=== PATIENT | male | born 1990 | race Caucasian/White ===

== ENCOUNTER 2024-10-24 17:50 | Emergency (ER) | payer OTHER, SELFPAY ==
--- NOTE | ~2024-10-24 | XR_ITS ---
EXAMINATION: XR chest 2V Exam Date/Time: 10/24/2024 18:19 EDUCATIONAL ASSISTANT HISTORY: sob Comparison: None. RESULT: Lines, tubes, and devices: None. Lungs and pleura: Mild reticulonodular opacities in the bilateral lower lungs. Mild cuffing. Cardiomediastinal silhouette: Stable. Other: No acute osseous or upper abdominal finding. IMPRESSION: Pulmonary opacities may represent mild respiratory bronchiolitis in the appropriate clinical context. Reviewed, dictated and finalized at location [facility]. ATIONAL ASSISTANT IMPRESSION: Pulmonary opacities may represent mild respiratory bronchiolitis in the appropr iate clinical context.
--- NOTE | 2024-10-24 18:08 | ED.GENADULT ---
HPI - General Adult General Chief complaint: Unspecified <Sandra Jones PA-C - Last Filed: 10/25/24 10:45> Stated complaint: arms and legs numb, sob - recently had flu a <Sandra Jones PA-C - Last Filed: 10/25/24 10:45> Time Seen by Provider: 10/24/24 18:09 <Sandra Jones PA-C - Last Filed: 10/25/24 10:45> Focused HPI: This is a 25 year old male that presents to the ER for shortness of breath. Reports he was driving home from work. He started to feel lightheaded, short of breath, tingling in his arms and legs. Reports recently recovering from influenza. Denies chest pain. GENERAL: Well-appearing, well-nourished, and in no acute distress. HEAD: Normocephalic, atraumatic. CHEST: Clear to auscultation. ?No respiratory distress. HEART: Regular rate and rhythm.? NEURO: ?Alert and oriented x3. Patient screened in triage and initial orders placed.? ?Additional care and disposition to be based upon?diagnostic testing and treatment. <Sandra Jones PA-C - Last Filed: 10/25/24 10:45> Focused HPI: This is a 35 year old male that presents to the ER for shortness of breath. Reports he was driving home from work. He started to feel lightheaded, short of breath, tingling in his arms and legs. Reports recently recovering from influenza. Denies chest pain. GENERAL: Well-appearing, well-nourished, and in no acute distress. HEAD: Normocephalic, atraumatic. CHEST: Clear to auscultation. ?No respiratory distress. HEART: Regular rate and rhythm.? NEURO: ?Alert and oriented x3. Patient screened in triage and initial orders placed.? ?Additional care and disposition to be based upon?diagnostic testing and treatment. <Liborio Fuller MD - Last Filed: 10/24/24 23:38> History of Present Illness HPI narrative: 33-year-old male, agree with the HPI above, patient has had on and off shortness of breath for years without any clear explanations, negative pulmonary function test at outside hospital/PCPs office. Presently asymptomatic during my initial evaluation, denies any neuropathy, tingling, shortness of breath. <Liborio Fuller MD - Last Filed: 10/24/24 23:38> Related Data Allergies/adverse reactions: Allergies Allergy/AdvReac Type Severity Reaction Status Date / Time No Known Allergies Allergy Verified 10/25/24 00:31 <Sandra Jones PA-C - Last Filed: 10/25/24 10:45> Review of Systems Review of Systems: As reviewed above in HPI <Liborio Fuller MD - Last Filed: 10/24/24 23:38> Exam Narrative: GENERAL: [Well-appearing, well-nourished, and in no acute distress.] HEAD: [Normocephalic, atraumatic.] EYES: [PERRLA and EOMI.] ENT: Nares clear, no rhinorrhea or epistaxis. Mucous membranes moist. NECK: Supple. CHEST: [Clear to auscultation. No respiratory distress.] HEART: [Regular rate and rhythm]. No murmur heard. [Normal peripheral pulses.] ABDOMEN: [Soft, nondistended], [nontender], [No rigidity or guarding] EXTREMITIES: Normal range of motion. [No edema.] SKIN: Warm, dry, no rash. NEURO: [No focal deficits]. Alert and oriented [x3.] PSYCH: [Normal mood and affect.] <Liborio Fuller MD - Last Filed: 10/24/24 23:38> Course Vital Signs Vital signs: Vital Signs Temperature 98.0 F 10/24/24 18:22 Pulse Rate 79 10/24/24 18:22 Respiratory Rate 18 10/24/24 18:22 Blood Pressure 112/65 10/24/24 18:22 Pulse Oximetry 100 10/24/24 18:22 Oxygen Delivery Room Air 10/24/24 18:22 Temperature 98.0 F 10/24/24 18:22 Pulse Rate 74 10/25/24 01:18 Respiratory Rate 17 10/25/24 01:18 Blood Pressure 108/76 10/25/24 01:18 Pulse Oximetry 100 10/25/24 01:18 Oxygen Delivery Room Air 10/24/24 18:22 <Sandra Jones PA-C - Last Filed: 10/25/24 10:45> Vital Signs Temperature 98.0 F 10/24/24 18:22 Pulse Rate 79 10/24/24 18:22 Respiratory Rate 18 10/24/24 18:22 Blood Pressure 112/65 10/24/24 18:22 Pulse Oximetry 100 10/24/24 18:22 Oxygen Delivery Room Air 10/24/24 18:22 Temperature 98.0 F 10/24/24 18:22 Pulse Rate 74 10/25/24 01:18 Respiratory Rate 17 10/25/24 01:18 Blood Pressure 108/76 10/25/24 01:18 Pulse Oximetry 100 10/25/24 01:18 Oxygen Delivery Room Air 10/24/24 18:22 <Liborio Fuller MD - Last Filed: 10/24/24 23:38> Medical Decision Making MDM Narrative Medical decision making narrative: 33-year-old otherwise healthy appearing male presenting to the emergency department for evaluation of shortness of breath and bilateral arm and leg paresthesias that were short-lived and self-resolved. Symptoms occurred while he was driving the company car on his way to work. [place] tingling in his fingers and toes which also happened during his recent diagnosis of influenza. He just got over acute viral syndrome and was feeling better from this but still having residual cough and some shortness of breath. Denies any symptoms during my initial assessment, no paresthesias, tingling in the arms, legs, face. No asymmetric weakness. No facial asymmetry. No headache or vision changes. He has clear breath sounds throughout. 2+ symmetric radial pulses. Normal extremities exam. Normal vital signs with any tachycardia, fever or hypoxia. Lab work was obtained including CBC, CMP, troponin, PT, PTT, EKG and chest x-ray and he was given fluid bolus. Suspicion presently for potential post viral syndrome, bronchitis, pneumonia, panic attack, anxiety, less likely central pathology given his resolution of symptoms and lack of clinical findings during this assessment. Workup reveals no leukocytosis or significant anemia. Normal platelet count. Coagulation panel without significant findings. Minor hypokalemia 3.2 which could be secondary for some tachypnea. Normal electrolytes otherwise. Normal renal function, normal glucose and hepatic function panel. Negative troponin. Negative lipase. His chest x-ray shows some respiratory bronchiolitis in the lower airways consistent with his clinical history. EKG shows sinus rhythm, no signs of acute ischemic event, infrequent PVCs noted. Patient was provided prednisone for his bronchiolitis, has tried albuterol inhaler home without any relief. Not any respiratory distress with normal vital signs. He was given some potassium replenishment as well as a fluid bolus and safe for discharge home at this time. Patient's questions were answered he will contact his PCP for close follow-up and return with any new or worsening concerns. <Liborio Fuller MD - Last Filed: 10/24/24 23:38> Medical Records Medical records reviewed: Yes I reviewed the external patient's medical records. <Liborio Fuller MD - Last Filed: 10/24/24 23:38> Vital Signs Vital Signs: Vital Signs Temperature 98.0 F 10/24/24 18:22 Pulse Rate 79 10/24/24 18:22 Respiratory Rate 18 10/24/24 18:22 Blood Pressure 112/65 10/24/24 18:22 Pulse Oximetry 100 10/24/24 18:22 Oxygen Delivery Room Air 10/24/24 18:22 Temperature 98.0 F 10/24/24 18:22 Pulse Rate 74 10/25/24 01:18 Respiratory Rate 17 10/25/24 01:18 Blood Pressure 108/76 10/25/24 01:18 Pulse Oximetry 100 10/25/24 01:18 Oxygen Delivery Room Air 10/24/24 18:22 <Sandra Jones PA-C - Last Filed: 10/25/24 10:45> Vital Signs Temperature 98.0 F 10/24/24 18:22 Pulse Rate 79 10/24/24 18:22 Respiratory Rate 18 10/24/24 18:22 Blood Pressure 112/65 10/24/24 18:22 Pulse Oximetry 100 10/24/24 18:22 Oxygen Delivery Room Air 10/24/24 18:22 Temperature 98.0 F 10/24/24 18:22 Pulse Rate 74 10/25/24 01:18 Respiratory Rate 17 10/25/24 01:18 Blood Pressure 108/76 10/25/24 01:18 Pulse Oximetry 100 10/25/24 01:18 Oxygen Delivery Room Air 10/24/24 18:22 <Liborio Fuller MD - Last Filed: 10/24/24 23:38> Lab Data Lab results reviewed: Yes I reviewed the patient's lab results. <Liborio Fuller MD - Last Filed: 10/24/24 23:38> Result diagrams: 10/24/24 18:53 10/24/24 18:53 <Sandra Jones PA-C - Last Filed: 10/25/24 10:45> Labs: Lab Results 10/24/24 Range/Units 18:53 WBC 9.5 (4.5-10.0) K/mm3 RBC 4.44 L (4.6-6.20) M/mm3 Hgb 12.6 L (14.0-18.0) g/dL Hct 38.1 L (42.0-52.0) % MCV 85.8 (80-100) fl MCH 28.4 (26-34) pg MCHC 33.1 (32-36) g/dl RDW 12.7 (11.5-14.5) % Plt Count 385 H (150-375) k/mm3 MPV 10.5 H (7.4-10.4) fl Immature Gran % (Auto) 0.4 (0-0.5) % Neut % (Auto) 55.6 (45.5-73.1) % Lymph % (Auto) 33.4 (18.3-44.2) % [place] % (Auto) 8.7 H (2.6-8.5) % Eos % (Auto) 1.5 (0-4.4) % Baso % (Auto) 0.4 (0.2-1.2) % Lymph # (Auto) 3.17 (0.9-3.2) K/mm3 [place] # (Auto) 0.8 H (0.1-0.6) K/mm3 Eos # (Auto) 0.1 (0-0.3) K/mm3 Baso # (Auto) 0.0 (0.0-0.1) K/mm3 Abs Immat Gran (auto) 0.04 H (0.00-0.031) K/mm3 Absolute Neuts (auto) 5.3 (1.3-6.7) K/mm3 Absolute Nucleated RBC 0.000 (0.0-0.012) K/mm3 Nucleated RBC % 0.0 (0.0-0.2) % PT 14.4 (11.1-14.7) Seconds INR 1.1 APTT 38.2 H (22.3-36.8) Seconds Sodium 138 (137-145) mmol/L Potassium 3.2 L (3.4-5.0) mmol/L Chloride 101 (98-107) mmol/L Carbon Dioxide 25 (22-30) mmol/L Anion Gap 12 (4-12) mmol/L BUN 11 (9-20) mg/dL Creatinine 0.78 (0.7-1.3) mg/dL Estim Creat Clear Calc 131 ml/min Estimated GFR > 60 (59 - ) Glucose 100 (65-110) mg/dL Calcium 9.3 (8.4-10.2) mg/dL Total Bilirubin 0.7 (0.2-1.3) mg/dL AST 36 (17-59) U/L ALT 32 (6-50) U/L Alkaline Phosphatase 65 (38-126) U/L Troponin I < 0.012 (0.000-0.034) ng/mL Total Protein 9.0 H (6.3-8.2) g/dL Albumin 4.2 (3.5-5.1) g/dL Lipase 114 (23-300) U/L <Sandra Jones PA-C - Last Filed: 10/25/24 10:45> Lab Results 10/24/24 Range/Units 18:53 WBC 9.5 (4.5-10.0) K/mm3 RBC 4.44 L (4.6-6.20) M/mm3 Hgb 12.6 L (14.0-18.0) g/dL Hct 38.1 L (42.0-52.0) % MCV 85.8 (80-100) fl MCH 28.4 (26-34) pg MCHC 33.1 (32-36) g/dl RDW 12.7 (11.5-14.5) % Plt Count 385 H (150-375) k/mm3 MPV 10.5 H (7.4-10.4) fl Immature Gran % (Auto) 0.4 (0-0.5) % Neut % (Auto) 55.6 (45.5-73.1) % Lymph % (Auto) 33.4 (18.3-44.2) % [place] % (Auto) 8.7 H (2.6-8.5) % Eos % (Auto) 1.5 (0-4.4) % Baso % (Auto) 0.4 (0.2-1.2) % Lymph # (Auto) 3.17 (0.9-3.2) K/mm3 [place] # (Auto) 0.8 H (0.1-0.6) K/mm3 Eos # (Auto) 0.1 (0-0.3) K/mm3 Baso # (Auto) 0.0 (0.0-0.1) K/mm3 Abs Immat Gran (auto) 0.04 H (0.00-0.031) K/mm3 Absolute Neuts (auto) 5.3 (1.3-6.7) K/mm3 Absolute Nucleated RBC 0.000 (0.0-0.012) K/mm3 Nucleated RBC % 0.0 (0.0-0.2) % PT 14.4 (11.1-14.7) Seconds INR 1.1 APTT 38.2 H (22.3-36.8) Seconds Sodium 138 (137-145) mmol/L Potassium 3.2 L (3.4-5.0) mmol/L Chloride 101 (98-107) mmol/L Carbon Dioxide 25 (22-30) mmol/L Anion Gap 12 (4-12) mmol/L BUN 11 (9-20) mg/dL Creatinine 0.78 (0.7-1.3) mg/dL Estim Creat Clear Calc 131 ml/min Estimated GFR > 60 (59 - ) Glucose 100 (65-110) mg/dL Calcium 9.3 (8.4-10.2) mg/dL Total Bilirubin 0.7 (0.2-1.3) mg/dL AST 36 (17-59) U/L ALT 32 (6-50) U/L Alkaline Phosphatase 65 (38-126) U/L Troponin I < 0.012 (0.000-0.034) ng/mL Total Protein 9.0 H (6.3-8.2) g/dL Albumin 4.2 (3.5-5.1) g/dL Lipase 114 (23-300) U/L <Liborio Fuller MD - Last Filed: 10/24/24 23:38> Imaging Data Attestation: I personally reviewed and interpreted this imaging study as follows: <Liborio Fuller MD - Last Filed: 10/24/24 23:38> My impression: Impressions Chest X-Ray 10/24/24 18:37 IMPRESSION: Pulmonary opacities may represent mild respiratory bronchiolitis in the appropriate clinical context. <Liborio Fuller MD - Last Filed: 10/24/24 23:38> Critical Care Time Critical Care Time Critical Care Time: No <Sandra Jones PA-C - Last Filed: 10/25/24 10:45> Discharge Plan Discharge Clinical Impression: Bronchiolitis, Post viral syndrome, Acute hypokalemia, Paresthesia of upper and lower extremities of both sides <Sandra Jones PA-C - Last Filed: 10/25/24 10:45> Patient Disposition: Home, Self-Care <Sandra Jones PA-C - Last Filed: 10/25/24 10:45> Condition: Stable <Sandra Jones PA-C - Last Filed: 10/25/24 10:45> Instructions: Antibiotic Form, Bronchiolitis (ED), Paresthesia (ED) <Sandra Joens PA-C - Last Filed: 10/25/24 10:45> Additional Instructions: Your workup today is reassuring, chest x-ray shows some mild inflammation in the lower airways consistent with bronchiolitis any recent viral syndrome. Your paresthesias have since resolved, he has some mild hypokalemia which was replenished here in the ED. no acute concerns otherwise, follow-up with your regular doctor, return with any new or worsening concerns. <Sandra Jones PA-C - Last Filed: 10/25/24 10:45> Patient Language: [place] <Sandra Jones PA-C - Last Filed: 10/25/24 10:45> Follow-up/Referrals: UNKNOWN,DOCTOR [Primary Care Provider] - <SUNDAY Carroll Last Filed: 10/25/24 10:45> Time of Disposition: 23:37 <Sandra Jones PA-C - Last Filed: 10/25/24 10:45> 23:37 <Liborio Fuller MD - Last Filed: 10/24/24 23:38>
--- NOTE | 2024-10-24 18:10 | ECG_ITS ---
Test Date: 2024-10-24 18:53:36 Measurements Intervals [place] Rate: 84 P: 28 [place]: 136 QRS: 7 QRSD: 91 T: 3 QT: 378 QTc: 447 Interpretive Statements SINUS RHYTHM WITH OCCASIONAL VENTRICULAR PREMATURE COMPLEXES BORDERLINE ST-T WAVE ABNORMALITY- ANT/INF LEADS BASELINE ARTIFACT- I, II, III, AVR, AVL, AVF BORDERLINE ECG No previous ECG available for comparison Electronically Signed On 10-24-2024 19:08:06 [employer]IO SURVEY WORKER by Adiel Burroughs D.O.
[2024-10-24 18:22] VITALS: BP 112/65; PULSE 79; RESP 18; TEMP 36.7; O2SAT 100
[2024-10-24 19:00] LABS: Basophils Percent Auto 0.4 % (0.2-1.2); Eosinophils Absolute Auto 0.1 K/mm3 (0-0.3); Eosinophils Percent Auto 1.5 % (0-4.4); Hematocrit 38.1 % (42.0-52.0); Hemoglobin 12.6 g/dL (14.0-18.0); Immature Granulocyte Absolute 0.04 K/mm3 (0.00-0.031); Immature Granulocyte Percent A 0.4 % (0-0.5); Lymphocytes Absolute Auto 3.17 K/mm3 (0.9-3.2); Lymphocytes Percent Auto 33.4 % (18.3-44.2); Mean Corpuscular HGB Conc 33.1 g/dl (32-36); Mean Corpuscular Hemoglobin 28.4 pg (26-34); Mean Corpuscular Volume 85.8 fl (80-100); Mean Platelet Volume 10.5 fl (7.4-10.4); Monocytes Absolute Auto 0.8 K/mm3 (0.1-0.6); Monocytes Percent Auto 8.7 % (2.6-8.5); Neutrophils Absolute Auto 5.3 K/mm3 (1.3-6.7); Neutrophils Percent Auto 55.6 % (45.5-73.1); Platelet Count Result 385 k/mm3 (150-375); Red Blood Count 4.44 M/mm3 (4.6-6.20); Red Cell Distribution Width 12.7 % (11.5-14.5); White Blood Count 9.5 K/mm3 (4.5-10.0)
[2024-10-24 19:14] LABS: Alanine Aminotransferase 32 U/L (6-50); Albumin Level 4.2 g/dL (3.5-5.1); Alkaline Phosphatase 65 U/L (38-126); Anion Gap 12 mmol/L (4-12); Aspartate Amino Transferase 36 U/L (17-59); Bilirubin,Total 0.7 mg/dL (0.2-1.3); Blood Urea Nitrogen 11 mg/dL (9-20); Calcium 9.3 mg/dL (8.4-10.2); Carbon Dioxide 25 mmol/L (22-30); Chloride 101 mmol/L (98-107); Estimated CRCL calculation 131 ml/min; Estimated Glomerular Filt Rate > 60; Glucose 100 mg/dL (65-110); Lipase 114 U/L (23-300); Potassium 3.2 mmol/L (3.4-5.0); Sodium 138 mmol/L (137-145)
[2024-10-24 19:16] LABS: INR 1.1; Prothrombin Time 14.4 Seconds (11.1-14.7)
[2024-10-24 19:18] LABS: Partial Thromboplastin Time 38.2 Seconds (22.3-36.8)
[2024-10-24 19:25] LABS: Troponin I < 0.012 ng/mL (0.000-0.034)
[2024-10-24 21:32] VITALS: BP 103/70; PULSE 75; RESP 16; O2SAT 99
[2024-10-25] MEDS: POTASSIUM CHLORIDE 20 MEQ ER TABLET 40 MEQ PO (00:31)
[2024-10-25] MEDS: SODIUM CHLORIDE 0.9% IV 1,000 ML 999 ML IV CONT (00:32)
[2024-10-25] MEDS: predniSONE 20 MG TABLET 60 MG PO (00:32)
[2024-10-25] MEDS: Please add drug allergy info to patient profile. 1 EACH XX (00:37)
[2024-10-25 01:18] VITALS: BP 108/76; PULSE 74; RESP 17; O2SAT 100
== END 2024-10-25 01:20 | disposition home or self-care (01) ==
PROVIDERS: Physician Assistant; Emergency Provider Student in an Organized Health Care Education/Training Program
DX: J21.9 Acute bronchiolitis, unspecified (principal); G93.31 Postviral fatigue syndrome; E87.6 Hypokalemia; R20.2 Paresthesia of skin
CPT/HCPCS: 36415; 71046; 80053; 83690; 84484; 85025; 85610; 85730; 93005; 99284; A9270; J7030; J7512